=== PATIENT | male | born 1945 | race Caucasian/White ===

== ENCOUNTER 2017-03-20 12:35 | Emergency (ER) | payer MEDICARE, OTHER ==
[2017-03-20] MEDS: LIDOCAINE 1% (MDV) 20 ML INJ SC (16:54)
== END 2017-03-20 17:52 | disposition home or self-care (01) ==
LOC: FTE 12:35
DX: L03.213 Periorbital cellulitis (principal)
CPT/HCPCS: 10060; 99283-25

== ENCOUNTER 2017-03-22 07:35 | Emergency (ER) | payer MEDICARE, OTHER | END 2017-03-22 09:16 | disposition home or self-care (01) | LOC: FTE 07:35 | DX: H05.012 Cellulitis of left orbit (principal) | CPT/HCPCS: 99282 ==